=== PATIENT | female | born 1955 | race Caucasian/White ===

== ENCOUNTER 2017-06-03 11:25 | Day surgery (SDC) | payer OTHER ==
[~2017-06-03 11:25] MED LIST: D5 LR 1000 ML 1,000 ML IV ONE
[2017-06-03] MEDS ORDERED: DIPRIVAN VIAL 20 ML ONE (13:02)
[2017-06-03 13:39] VITALS: BP 119/68
== END 2017-06-03 13:44 | disposition home or self-care (01) ==
LOC: SURG1 11:25
PROVIDERS: ATTEND Internal Medicine Gastroenterology
PROC: 0DB88ZX Excision of Small Intestine, Via Natural or Artificial Opening Endoscopic, Diagnostic (ICD-10-PCS; principal; 2017-06-03 14:15)
PROC: 0DB68ZX Excision of Stomach, Via Natural or Artificial Opening Endoscopic, Diagnostic (ICD-10-PCS; principal; 2017-06-03 14:15)
PROC: 0DJ08ZZ Inspection of Upper Intestinal Tract, Via Natural or Artificial Opening Endoscopic (ICD-10-PCS; principal; 2017-06-03 14:15)
DX: R10.13 Epigastric pain (principal); R10.12 Left upper quadrant pain; K21.9 Gastro-esophageal reflux disease without esophagitis; K11.0 Atrophy of salivary gland; K25.9 Gastric ulcer, unspecified as acute or chronic, without hemorrhage or perforation; K29.60 Other gastritis without bleeding; K20.8 Other esophagitis
CPT/HCPCS: A4217; J3490; J7120

== ENCOUNTER 2017-06-10 07:24 | Day surgery (SDC) | payer OTHER ==
[2017-06-10] MEDS ORDERED: D5 LR 1000 ML 1,000 ML IV ONE (07:34)
[2017-06-10] MEDS ORDERED: DIPRIVAN VIAL 20 ML ONE (08:49)
[2017-06-10] MEDS ORDERED: DIPRIVAN VIAL 10 ML ONE (09:04)
[2017-06-10 09:40] VITALS: BP 120/74
== END 2017-06-10 09:40 | disposition home or self-care (01) ==
LOC: SURG1 07:24
PROVIDERS: ATTEND Internal Medicine Gastroenterology
PROC: 0DBK8ZX Excision of Ascending Colon, Via Natural or Artificial Opening Endoscopic, Diagnostic (ICD-10-PCS; principal; 2017-06-10 08:00)
PROC: 0DJD8ZZ Inspection of Lower Intestinal Tract, Via Natural or Artificial Opening Endoscopic (ICD-10-PCS; principal; 2017-06-10 08:00)
PROC: 0DBM8ZX Excision of Descending Colon, Via Natural or Artificial Opening Endoscopic, Diagnostic (ICD-10-PCS; principal; 2017-06-10 08:00)
PROC: 0DBP8ZX Excision of Rectum, Via Natural or Artificial Opening Endoscopic, Diagnostic (ICD-10-PCS; principal; 2017-06-10 08:00)
DX: R19.4 Change in bowel habit (principal); R10.31 Right lower quadrant pain; R10.32 Left lower quadrant pain; K63.5 Polyp of colon; K57.30 Diverticulosis of large intestine without perforation or abscess without bleeding; K64.0 First degree hemorrhoids
CPT/HCPCS: A4217; J3490; J7120